=== PATIENT | female | born 1980 | race American Indian/Alaskan Native ===

== ENCOUNTER 2016-11-24 01:51 | Emergency (ER) | payer MEDICAID, OTHER ==
[~2016-11-24] VITALS: Ht 167.6 cm; Wt 90.0 kg
[2016-11-24 01:53] VITALS: BP 116/78
== END 2016-11-24 03:07 | disposition left against medical advice (07) ==
LOC: ED 01:53
DX: R73.9 Hyperglycemia, unspecified (principal); Z53.21 Procedure and treatment not carried out due to patient leaving prior to being seen by health care provider
CPT/HCPCS: 82962

== ENCOUNTER 2017-01-22 08:08 | Emergency (ER) | payer OTHER ==
[~2017-01-22] VITALS: Ht 167.6 cm; Wt 86.0 kg
[2017-01-22] MEDS ORDERED: KETOROLAC 30 MG/1 ML IM ONE (09:00)
[2017-01-22 09:18] LABS: HEMATOCRIT 34.7 % (34.6-47.8); HEMOGLOBIN 11.7 g/dL (11.7-16.4); WHITE BLOOD COUNT 4.4 x10^3/uL (3.4-10)
[2017-01-22] MEDS ORDERED: KETOROLAC 30 MG/1 ML ONE (09:22)
[2017-01-22 09:30] LABS: BLOOD UREA NITROGEN 15 mg/dL (7-18)
[2017-01-22 11:44] VITALS: BP 151/87
== END 2017-01-22 11:46 | disposition home or self-care (01) ==
LOC: ED 09:00
DX: M79.671 Pain in right foot (principal); M25.571 Pain in right ankle and joints of right foot; R26.2 Difficulty in walking, not elsewhere classified; E11.9 Type 2 diabetes mellitus without complications
CPT/HCPCS: 36415; 80048; 82040; 84550; 85025; 93971; 96372; 99285; J1885

== ENCOUNTER 2017-04-21 21:04 | Inpatient (IN) | payer OTHER ==
[~2017-04-21] VITALS: Ht 165.1 cm; Wt 99.8 kg
[2017-04-21] MEDS ORDERED: METF500T27 PO (21:27)
[2017-04-21] MEDS ORDERED: METOCLOPRAMIDE 5 MG/ML, 2ML ONE (21:42)
[2017-04-21] MEDS ORDERED: ACETAMINOPHEN 500 MG TABLET ONE (21:42)
[2017-04-21] MEDS ORDERED: DIPHENHYDRAMINE 50 MG/ML, 1ML ONE (21:42)
[2017-04-21 21:48] LABS: HEMATOCRIT 37.4 % (34.6-47.8); HEMOGLOBIN 12.8 g/dL (11.7-16.4); WHITE BLOOD COUNT 3.3 x10^3/uL (3.4-10)
[2017-04-21] MEDS ORDERED: METOCLOPRAMIDE 5 MG/ML, 2ML IVPush ONE (22:00)
[2017-04-21] MEDS ORDERED: DIPHENHYDRAMINE 50 MG/ML, 1ML IVPush ONE (22:00)
[2017-04-21] MEDS ORDERED: ACETAMINOPHEN 500 MG TABLET PO ONE (22:00)
[2017-04-21] MEDS ORDERED: SODIUM CHLORIDE FLUSH 10ML SYR IVF ONE (22:00)
[2017-04-21] MEDS ORDERED: SODIUM CHLORIDE 0.9% 1,000ML IVBOLUS ONE (22:00)
[2017-04-21 22:09] LABS: RAPID INFLUENZA A Negative (Negative); RAPID INFLUENZA B Negative (Negative)
[2017-04-21 22:26] LABS: ASPARTATE AMINO TRANSFERASE 73 U/L (15-37); BLOOD UREA NITROGEN 7 mg/dL (7-18)
[2017-04-21] MEDS ORDERED: CEFTRIAXONE 2 GM in SODIUM CHLORIDE 0.9% 50 ML IVPB ONE (23:30)
[2017-04-21] MEDS ORDERED: VANCOMYCIN PER PHARMACY MC ONE (23:30)
[2017-04-21] MEDS ORDERED: DEXAMETHASONE 4 MG/ML, 1ML IVPush ONE (23:30)
[2017-04-21] MEDS ORDERED: KETOROLAC 30 MG/1 ML ONE (23:46)
[2017-04-21] MEDS ORDERED: DEXAMETHASONE 4 MG/ML, 5ML ONE (23:46)
[2017-04-21] MEDS ORDERED: CEFTRIAXONE PMX 2GM/50ML 50 ML ONE (23:46)
[2017-04-21 23:53] LABS: DAU SCREEN DISCLAIMER
[2017-04-22] MEDS ORDERED: KETOROLAC 30 MG/1 ML IVPush ONE
[2017-04-22] MEDS ORDERED: SODIUM CHLORIDE 0.9% 1,000ML IVBOLUS ONE
[2017-04-22] MEDS ORDERED: VANCOMYCIN 1,700 MG in SODIUM CHLORIDE 0.9% 250 ML IV ONE
[2017-04-22 00:30] VITALS: BP 110/71
[2017-04-22] MEDS ORDERED: BISACODYL 10 MG SUPP PR PRN (00:30)
[2017-04-22] MEDS ORDERED: ONDANSETRON 2MG/ML, 2ML IVPush PRN (00:30)
[2017-04-22] MEDS ORDERED: PHARMACOKINETIC MONITORING MC PRN (00:30)
[2017-04-22] MEDS ORDERED: POLYETHYLENE GLYCOL 17 GM PACKET PO PRN (00:30)
[2017-04-22] MEDS ORDERED: NICOTINE 14MG/24 HR PATCH.TD24 TD SCH (00:30)
[2017-04-22] MEDS ORDERED: VANCOMYCIN PER PHARMACY MC PRN (00:30)
[2017-04-22 00:51] LABS: HIV 1&2 ANTIBODY SCREEN Nonreactive (Nonreactive); HIV-1 p24 ANTIGEN Nonreactive (Nonreactive)
[2017-04-22] MEDS: SODIUM CHLORIDE 0.9% 1,000 ML IV SCH ×2 (00:51→16:16)
[2017-04-22] MEDS: INSULIN ASPART 100 UNITS/ML, PEN SQ-INSULIN SCH ×4 (01:33→16:16)
[2017-04-22] MEDS: ACYCLOVIR 850 MG in SODIUM CHLORIDE 0.9% 250 ML IV SCH ×3 (03:01→23:17)
[2017-04-22 05:18] LABS: HEMATOCRIT 37.1 % (34.6-47.8); HEMOGLOBIN 12.6 g/dL (11.7-16.4); WHITE BLOOD COUNT 3.1 x10^3/uL (3.4-10)
[2017-04-22 05:32] LABS: BLOOD UREA NITROGEN 9 mg/dL (7-18)
[2017-04-22 05:36] LABS: ASPARTATE AMINO TRANSFERASE 58 U/L (15-37)
[2017-04-22] MEDS: ACETAMINOPHEN 325 MG TABLET PO PRN ×2 (05:59→12:14)
[2017-04-22 07:15] VITALS: BP 98/62
[2017-04-22] MEDS: SENNA/DOCUSATE TABLET PO SCH (08:47)
[2017-04-22] MEDS: VANCOMYCIN 1,300 MG in SODIUM CHLORIDE 0.9% 250 ML IV SCH ×3 (08:47→20:24)
[2017-04-22] MEDS ORDERED: metFORMIN XR 500 MG TAB.ER.24H PO SCH (09:00)
[2017-04-22] MEDS ORDERED: LIDOCAINE 1%, 20ML ONE (09:19)
[2017-04-22 10:13] LABS: GLUCOSE, CSF 143 mg/dL (40-80)
[2017-04-22] MEDS ORDERED: CEFTRIAXONE 2 GM in DEXTROSE 5% 50 ML IV SCH (11:30)
[2017-04-22 14:21] VITALS: BP 122/71
[2017-04-22] MEDS: CEFTRIAXONE 2 GM in DEXTROSE 5% 50 ML IV SCH (15:05)
[2017-04-22 19:38] VITALS: BP 113/75
[2017-04-23] MEDS: INSULIN ASPART 100 UNITS/ML, PEN SQ-INSULIN SCH ×3 (01:05→10:56)
[2017-04-23 03:00] VITALS: BP 121/75
[2017-04-23] MEDS: CEFTRIAXONE 2 GM in DEXTROSE 5% 50 ML IV SCH (03:45)
[2017-04-23] MEDS: VANCOMYCIN 1,300 MG in SODIUM CHLORIDE 0.9% 250 ML IV SCH ×2 (04:22→12:34)
[2017-04-23] MEDS: ACYCLOVIR 850 MG in SODIUM CHLORIDE 0.9% 250 ML IV SCH (05:57)
[2017-04-23] MEDS: ACETAMINOPHEN 325 MG TABLET PO PRN (06:33)
[2017-04-23 07:42] VITALS: BP 116/75
[2017-04-23] MEDS: SENNA/DOCUSATE TABLET PO SCH (07:50)
[2017-04-23] MEDS: SODIUM CHLORIDE 0.9% 1,000 ML IV SCH (11:56)
[2017-04-23] MEDS ORDERED: NITR100C6 PO (13:29)
[2017-04-28 10:07] LABS: WEST NILE VIRUS IGG CSF Negative (Negative); WEST NILE VIRUS IGM CSF Negative (Negative)
== END 2017-04-23 14:47 | disposition home or self-care (01) | DRG 871 ==
LOC: ED 21:48 → EDIP 23:45 → 4NOR 04-22 00:24
PROVIDERS: ADMIT Family Medicine; ATTEND Internal Medicine
PROC: 009U3ZX Drainage of Spinal Canal, Percutaneous Approach, Diagnostic (ICD-10-PCS; principal; 2017-04-22)
PROC: B01B1ZZ Fluoroscopy of Spinal Cord using Low Osmolar Contrast (ICD-10-PCS; 2017-04-22)
DX: A41.9 Sepsis, unspecified organism (principal); G93.41 Metabolic encephalopathy; E11.65 Type 2 diabetes mellitus with hyperglycemia; E44.1 Mild protein-calorie malnutrition; E87.1 Hypo-osmolality and hyponatremia; N39.0 Urinary tract infection, site not specified; B95.61 Methicillin susceptible Staphylococcus aureus infection as the cause of diseases classified elsewhere; F12.10 Cannabis abuse, uncomplicated; F15.10 Other stimulant abuse, uncomplicated; F17.210 Nicotine dependence, cigarettes, uncomplicated; D72.819 Decreased white blood cell count, unspecified; Z90.49 Acquired absence of other specified parts of digestive tract
CPT/HCPCS: 36415; 62270; 70450; 71010; 80053; 80074; 80307; 81001; 82140; 82945; 82962; 83036; 83605; 84145; 84157; 85025; 85610; 85730; 86703; 86788; 86789; 87015; 87040; 87070; 87075; 87077; 87086; 87116; 87186; 87205; 87206; 87252; 87400; 87496; 87798; 87899; 89051; 93005; 93306; 96365; 96375; J0133; J0696; J1100; J1815; J1885; J3370; J3490; G0435; G0479; J1200; J2765; J7030; J7050

== ENCOUNTER 2017-09-18 10:44 | Emergency (ER) | payer MEDICAID, OTHER ==
[~2017-09-18] VITALS: Ht 167.6 cm; Wt 84.9 kg
[~2017-09-18 10:44] MED LIST: METF500T27 PO; NITR100C6 PO
[2017-09-18 10:47] VITALS: BP 130/83
[2017-09-18 11:35] LABS: BASOPHILS # (AUTO) 0.02 x10^3/uL (0-0.1); BASOPHILS % (AUTO) 1 % (0-1); EOSINOPHILS # (AUTO) 0.15 x10^3/uL (0-0.4); EOSINOPHILS % (AUTO) 4 % (1-7); LYMPHOCYTES # (AUTO) 1.59 x10^3/uL (1-3.4); LYMPHOCYTES % (AUTO) 39 % (22-44); MD NO; MEAN CORPUSCULAR HGB CONC 33.5 g/dL (32.4-35.8); MEAN CORPUSCULAR VOLUME 77.5 fL (80-100); MEAN PLATELET VOLUME 8.5 fL (7.4-10.4); MONOCYTES # (AUTO) 0.29 x10^3/uL (0.2-0.8); MONOCYTES % (AUTO) 7 % (2-9); NEUTROPHILS # (AUTO) 1.99 x10^3/uL (1.8-6.8); NEUTROPHILS % (AUTO) 49 % (42-75); PLATELET COUNT 258 x10^3/uL (130-400); RED BLOOD COUNT 5.02 x10^6/uL (3.82-5.3); RED CELL DISTRIBUTION WIDTH 14.7 % (9.6-15.2)
[2017-09-18 11:44] LABS: ALBUMIN 3.1 g/dL (3.4-5.0); ANION GAP 7 mmol/L (5-15); CALCIUM 8.8 mg/dL (8.5-10.1); CHLORIDE 102 mmol/L (98-107); CREATININE 0.69 mg/dL (0.55-1.02)
== END 2017-09-18 15:21 | disposition left against medical advice (07) ==
LOC: ED 15:00
DX: K13.70 Unspecified lesions of oral mucosa (principal); E11.9 Type 2 diabetes mellitus without complications
CPT/HCPCS: 36415; 80048; 82040; 85025; 99284

== ENCOUNTER 2017-09-24 06:36 | Inpatient (IN) | payer MEDICAID ==
[~2017-09-24] VITALS: Ht 172.7 cm; Wt 84.8 kg
[2017-09-24] MEDS ORDERED: SODIUM CHLORIDE FLUSH 10ML SYR IVF ONE (07:00)
[2017-09-24] MEDS ORDERED: MORPHINE SULFATE 4 MG/ML, 1ML IVPush PRN (07:00)
[2017-09-24] MEDS ORDERED: MORPHINE SULFATE 4 MG/ML, 1ML ONE (07:15)
[2017-09-24 07:18] LABS: BASOPHILS # (AUTO) 0.02 x10^3/uL (0-0.1); BASOPHILS % (AUTO) 0 % (0-1); EOSINOPHILS # (AUTO) 0.17 x10^3/uL (0-0.4); EOSINOPHILS % (AUTO) 4 % (1-7); LYMPHOCYTES # (AUTO) 1.74 x10^3/uL (1-3.4); LYMPHOCYTES % (AUTO) 37 % (22-44); MD NO; MEAN CORPUSCULAR HEMOGLOBIN 25.8 pg (27.0-34.8); MEAN CORPUSCULAR HGB CONC 33.9 g/dL (32.4-35.8); MEAN CORPUSCULAR VOLUME 76.1 fL (80-100); MEAN PLATELET VOLUME 8.7 fL (7.4-10.4); MONOCYTES # (AUTO) 0.36 x10^3/uL (0.2-0.8); MONOCYTES % (AUTO) 8 % (2-9); NEUTROPHILS % (AUTO) 51 % (42-75); PLATELET COUNT 253 x10^3/uL (130-400); RED BLOOD COUNT 5.19 x10^6/uL (3.82-5.3); RED CELL DISTRIBUTION WIDTH 14.3 % (9.6-15.2)
[2017-09-24 07:31] LABS: ANION GAP 12 mmol/L (5-15); CALCIUM 8.3 mg/dL (8.5-10.1); CHLORIDE 103 mmol/L (98-107)
[2017-09-24 07:32] LABS: ALANINE AMINOTRANSFERASE 40 U/L (12-78)
[2017-09-24 07:36] LABS: ALKALINE PHOSPHATASE 137 U/L (45-117); BILIRUBIN,TOTAL 0.5 mg/dL (0.2-1.0); INTERNATIONAL NORMALIZED RATIO 0.92 (0.93-1.1); PROTHROMBIN TIME 9.6 Seconds (9.6-11.5); TOTAL PROTEIN 8.8 g/dL (6.4-8.2)
[2017-09-24] MEDS ORDERED: HYDROmorphone 2 MG/ML, 1ML ONE (07:45)
[2017-09-24] MEDS ORDERED: HYDROmorphone 1 MG/ML, 1ML IV ONE (08:00)
[2017-09-24] MEDS ORDERED: METRONIDAZOLE PMX 500MG/100ML 100 ML IV ONE (08:30)
[2017-09-24] MEDS ORDERED: SODIUM CHLORIDE 0.9% 1,000ML IVBOLUS ONE (08:30)
[2017-09-24] MEDS ORDERED: AMPICILLIN/SULBACTAM 3 GM in SODIUM CHLORIDE 0.9% 100 ML IV ONE (08:30)
[2017-09-24] MEDS ORDERED: ACYCLOVIR 850 MG in SODIUM CHLORIDE 0.9% 250 ML IV ONE (08:30)
[2017-09-24] MEDS ORDERED: OMNIPAQUE 350 MG/ML, 100ML BOTTLE ONE (08:42)
[2017-09-24] MEDS ORDERED: METRONIDAZOLE PMX 500MG/100ML 100 ML ONE (08:45)
[2017-09-24] MEDS: SENNA/DOCUSATE TABLET PO SCH (10:30)
[2017-09-24] MEDS: ENOXAPARIN 40 MG/0.4 ML SQ SCH (10:30)
[2017-09-24] MEDS ORDERED: ACETAMINOPHEN 325 MG TABLET PO PRN (10:30)
[2017-09-24] MEDS ORDERED: BISACODYL 10 MG SUPP PR PRN (10:30)
[2017-09-24] MEDS ORDERED: hydrALAzine 20 MG/ML, 1ML IVPush PRN (10:30)
[2017-09-24] MEDS ORDERED: POLYETHYLENE GLYCOL 17 GM PACKET PO PRN (10:30)
[2017-09-24] MEDS ORDERED: LABETALOL 5MG/ML, 20ML IVPush PRN (10:30)
[2017-09-24] MEDS ORDERED: ONDANSETRON 2MG/ML, 2ML IVPush PRN (10:30)
[2017-09-24 11:15] LABS: FREE T4 (FREE THYROXINE) 1.66 ng/dL (0.76-1.46); THYROID STIMULATING HORMONE 1.29 mIU/L (0.358-3.740)
[2017-09-24] MEDS ORDERED: AZITHROMYCIN 500 MG TABLET PO ONE (12:00)
[2017-09-24] MEDS: SODIUM CHLORIDE 0.9% 1,000 ML IV SCH ×2 (13:36→22:54)
[2017-09-24] MEDS: INSULIN LISPRO 100 UNITS/ML, PEN SQ-INSULIN SCH ×3 (13:41→23:00)
[2017-09-24 14:00] VITALS: BP 120/75
[2017-09-24] MEDS: ONDANSETRON ODT 4 MG PO PRN ×2 (14:28→23:52)
[2017-09-24] MEDS: MORPHINE SULFATE 4 MG/ML, 1ML IVPush PRN ×2 (14:29→23:52)
[2017-09-24] MEDS: METRONIDAZOLE PMX 500MG/100ML 100 ML IV SCH ×2 (14:31→22:54)
[2017-09-24] MEDS: CEFTRIAXONE PMX 1GM/50ML 50 ML IV SCH (14:31)
[2017-09-24 14:37] LABS: CLUE CELLS NONE SEEN (NONE SEEN); WET PREP WBCS MODERATE (FEW)
[2017-09-24 15:06] LABS: MICROSCOPIC INDICATED
[2017-09-24 15:14] LABS: CULTURE INDICATED? YES
[2017-09-24] MEDS ORDERED: AZITHROMYCIN 500 MG TABLET ONE (17:30)
[2017-09-24] MEDS: ACYCLOVIR 800 MG in SODIUM CHLORIDE 0.9% 250 ML IV SCH (17:51)
[2017-09-24] MEDS: AMPICILLIN/SULBACTAM 3 GM in SODIUM CHLORIDE 0.9% 100 ML IV SCH (17:51)
[2017-09-24 19:31] VITALS: BP 125/82
[2017-09-25 01:32] VITALS: BP 119/80
[2017-09-25] MEDS: ACYCLOVIR 800 MG in SODIUM CHLORIDE 0.9% 250 ML IV SCH ×2 (01:41→10:52)
[2017-09-25] MEDS: AMPICILLIN/SULBACTAM 3 GM in SODIUM CHLORIDE 0.9% 100 ML IV SCH ×5 (01:41→20:00)
[2017-09-25 05:25] LABS: MEAN CORPUSCULAR HEMOGLOBIN 25.8 pg (27.0-34.8); MEAN CORPUSCULAR HGB CONC 33.2 g/dL (32.4-35.8); MEAN CORPUSCULAR VOLUME 77.8 fL (80-100); MEAN PLATELET VOLUME 8.4 fL (7.4-10.4); PLATELET COUNT 201 x10^3/uL (130-400); RED BLOOD COUNT 4.62 x10^6/uL (3.82-5.3); RED CELL DISTRIBUTION WIDTH 14.7 % (9.6-15.2)
[2017-09-25 05:38] LABS: CHLORIDE 104 mmol/L (98-107)
[2017-09-25 05:49] LABS: ALANINE AMINOTRANSFERASE 243 U/L (12-78); ALBUMIN 2.4 g/dL (3.4-5.0); ALKALINE PHOSPHATASE 318 U/L (45-117); ANION GAP 10 mmol/L (5-15); BILIRUBIN,TOTAL 0.8 mg/dL (0.2-1.0); CALCIUM 8.1 mg/dL (8.5-10.1); CHOL/HDL RATIO 2.4; CHOLESTEROL, TOTAL 129 mg/dL (140-239); CREATININE 0.59 mg/dL (0.55-1.02); HDL CHOL % 41 % (28-40); HDL CHOLESTEROL (DIRECT) 53 mg/dL (40-60); LDL CHOLESTEROL,CALCULATED 67 mg/dL (54-169); LDL/HDL RATIO 1.3 (0.5-3.0); TOTAL PROTEIN 7.5 g/dL (6.4-8.2); TRIGLYCERIDES 47 mg/dL (50-200); VLDL CHOLESTEROL 9 mg/dL (0-25)
[2017-09-25 06:00] LABS: MD YES
[2017-09-25 06:03] LABS: EOS#(MANUAL) 0.03 x10^3/uL (0.0-0.4); EOS% (MANUAL) 1 % (1-7); LYMPH#(MANUAL) 1.23 x10^3/uL (1-3.4); LYMPHS% (MANUAL) 49 % (22-44); MONOS#(MANUAL) 0.15 x10^3/uL (0.3-2.7); MONOS% (MANUAL) 6 % (2-9); SEGS% (MANUAL) 44 % (42-75)
[2017-09-25 06:04] LABS: <PLATELET ESTIMATE> ADEQUATE; <PLT MORPHOLOGY> NORMAL PLT MORPH
[2017-09-25 06:06] LABS: POLYCHROMASIA 1+
[2017-09-25] MEDS: METRONIDAZOLE PMX 500MG/100ML 100 ML IV SCH ×4 (07:00→23:00)
[2017-09-25] MEDS: INSULIN LISPRO 100 UNITS/ML, PEN SQ-INSULIN SCH ×4 (07:00→21:06)
[2017-09-25] MEDS: SODIUM CHLORIDE 0.9% 1,000 ML IV SCH (07:53)
[2017-09-25] MEDS ORDERED: MAGNESIUM SULFATE PMX 2GM/50ML 50 ML IV ONE (08:30)
[2017-09-25] MEDS: MAGNESIUM CHLORIDE 64 MG TABLET.DR PO SCH ×2 (09:00→21:06)
[2017-09-25] MEDS: SENNA/DOCUSATE TABLET PO SCH (09:00)
[2017-09-25] MEDS: ENOXAPARIN 40 MG/0.4 ML SQ SCH (10:30)
[2017-09-25 12:18] LABS: HCG UR SG > 1.045 (1.003-1.030)
[2017-09-25] MEDS: KETOROLAC 30 MG/1 ML IVPush PRN (13:43)
[2017-09-25 14:00] VITALS: BP 131/84
[2017-09-25] MEDS: CEFTRIAXONE PMX 1GM/50ML 50 ML IV SCH (14:30)
[2017-09-25 21:02] VITALS: BP 106/70
[2017-09-25] MEDS: FAMCICLOVIR 500 MG TABLET PO SCH (21:06)
[2017-09-26] MEDS: AMPICILLIN/SULBACTAM 3 GM in SODIUM CHLORIDE 0.9% 100 ML IV SCH ×3 (02:00→15:03)
[2017-09-26] MEDS ORDERED: KETOROLAC 10MG TABLET PO PRN (02:30)
[2017-09-26 05:30] VITALS: BP 133/85
[2017-09-26] MEDS: METRONIDAZOLE PMX 500MG/100ML 100 ML IV SCH ×2 (07:00→15:15)
[2017-09-26 07:18] LABS: ALANINE AMINOTRANSFERASE 156 U/L (12-78); ALBUMIN 2.4 g/dL (3.4-5.0); ANION GAP 9 mmol/L (5-15); CALCIUM 7.9 mg/dL (8.5-10.1); CHLORIDE 104 mmol/L (98-107)
[2017-09-26 07:21] LABS: ALKALINE PHOSPHATASE 271 U/L (45-117); BILIRUBIN,TOTAL 0.4 mg/dL (0.2-1.0); CREATININE 0.48 mg/dL (0.55-1.02); TOTAL PROTEIN 7.5 g/dL (6.4-8.2)
[2017-09-26] MEDS: SENNA/DOCUSATE TABLET PO SCH (07:55)
[2017-09-26] MEDS: MAGNESIUM CHLORIDE 64 MG TABLET.DR PO SCH ×2 (07:55→20:51)
[2017-09-26] MEDS: FAMCICLOVIR 500 MG TABLET PO SCH ×2 (07:55→20:51)
[2017-09-26] MEDS: INSULIN LISPRO 100 UNITS/ML, PEN SQ-INSULIN SCH ×4 (07:55→20:54)
[2017-09-26] MEDS: ENOXAPARIN 40 MG/0.4 ML SQ SCH (10:30)
[2017-09-26] MEDS ORDERED: ACYCLOVIR 850 MG in SODIUM CHLORIDE 0.9% 250 ML IV SCH (14:00)
[2017-09-26] MEDS: KETOROLAC 30 MG/1 ML IVPush PRN ×2 (14:04→20:28)
[2017-09-26] MEDS: CEFTRIAXONE PMX 1GM/50ML 50 ML IV SCH (14:45)
[2017-09-26 15:18] VITALS: BP 124/83
[2017-09-26] MEDS ORDERED: BICILLIN-LA 2,400,000 UNITS/4 ML IM ONE (16:00)
[2017-09-26 21:10] VITALS: BP 129/88
== END 2017-09-26 22:00 | disposition left against medical advice (07) | DRG 977 ==
LOC: ED 08:24 → EDIP 08:25 → ED 08:38 → 3NE 09:56
PROVIDERS: ADMIT Internal Medicine Pulmonary Disease; ATTEND Internal Medicine Pulmonary Disease
PROC: 0T9B70Z Drainage of Bladder with Drainage Device, Via Natural or Artificial Opening (ICD-10-PCS; principal; 2017-09-24)
DX: B20 Human immunodeficiency virus [HIV] disease (principal); E43 Unspecified severe protein-calorie malnutrition; K85.90 Acute pancreatitis without necrosis or infection, unspecified; L03.314 Cellulitis of groin; N39.0 Urinary tract infection, site not specified; E11.65 Type 2 diabetes mellitus with hyperglycemia; B19.20 Unspecified viral hepatitis C without hepatic coma; F12.90 Cannabis use, unspecified, uncomplicated; E66.9 Obesity, unspecified; F15.10 Other stimulant abuse, uncomplicated; F17.210 Nicotine dependence, cigarettes, uncomplicated; K59.00 Constipation, unspecified; N72 Inflammatory disease of cervix uteri; N89.8 Other specified noninflammatory disorders of vagina; Z86.14 Personal history of Methicillin resistant Staphylococcus aureus infection; Z90.49 Acquired absence of other specified parts of digestive tract; Z91.14 Patient's other noncompliance with medication regimen; Z68.28 Body mass index [BMI] 28.0-28.9, adult
CPT/HCPCS: 36415; 71046; 74177; 80053; 80061; 81001; 81025; 82728; 82962; 83036; 83540; 83550; 83605; 83690; 83735; 84439; 84443; 84703; 85025; 85610; 86361; 86592; 86631; 86632; 86694; 86695; 86696; 86701; 86702; 86704; 86705; 86706; 86708; 86709; 86777; 86780; 86803; 87040; 87086; 87210; 87340; 87491; 87529; 87536; 87591; 87806; 87808; 96361; 96365; 96366; 96368; 96375; 96376; J0133; J0295; J0561; J0696; J1170; J1885; Q0162; Q9967; G0475; J1815; J3475; J7030; J7050